=== PATIENT | female | born 1975 | race Caucasian/White ===

== ENCOUNTER 2017-10-12 02:43 | Emergency (ER) | payer BC ==
[~2017-10-12 02:43] MED LIST: AMO875 PO; BUPR-133 PO; BUPR300T55 PO; CHOL500045 PO; DOMPERIDONE; FLUT16SP19 NS; HYDR-4309 PO; IBU600 PO; LOR10 PO; ONDA4TAB PO; PROM-110 PO
--- NOTE | 2017-10-12 02:53 | ER Report ---
History and Physical Time Seen By MD: 02:53 Hx. of Stated Complaint: 0100 ONSET OF HEADACHE. HPI/ROS CHIEF COMPLAINT: headache HISTORY OF PRESENT ILLNESS: This is a 42 year old female. She had acute onset of headache tonight at 0100. No history of chronic headaches. rated 8 on a 1-10 scale. Throbbing pain, also tightness at the base of the skull and sides of the neck. Photophobia. Nausea without vomiting. No fevers or chills. Allergies: Coded Allergies: No Known Drug Allergies (Verified , 10/12/17) Home Meds Active Scripts Ketorolac Tromethamine (KETOROLAC TROMETHAMINE) 10 Mg Tab, 10 MG PO Q6H Y for HEADACHE, #12 TAB 0 Refills Prov:MYRIAM BARAJAS MD 10/12/17 Promethazine Hcl (PROMETHAZINE HCL) 25 Mg Tablet, 25 MG PO Q8H Y for HEADACHE, # 20 TAB 0 Refills Prov:MYRIAM BARAJAS MD 10/12/17 Reported Medications Fluticasone Prop 50 Mcg Ns (FLONASE 50 MCG NS) 16 Gm [place].susp, 1 SPRAY NS BID , BOT 05/09/16 Cholecalciferol (Vitamin D3) (VITAMIN D) 5,000 Unit Tablet, 6000 UNIT PO 05/08/16 Bupropion Hcl (WELLBUTRIN SR) 100 Mg Tablet.er, 300 MG PO QDAY, TAB 05/08/16 Reviewed Nurses Notes: Yes Hx Smoking: No Hx Substance Use Disorder: No Hx Alcohol Use: No Constitutional Vital Sign - Last 24 Hours 10/12/17 10/12/17 02:46 04:44 Temp 97.9 Pulse 78 85 Resp 16 16 B/P (MAP) 139/95 142/88 (106) Pulse Ox 95 92 O2 Delivery Room Air Physical Exam General Appearance: The patient is alert. Acute distress due to headache and nausea and photophobia. Eyes: Pupils are equal, round. Reactive to light. No pallor, injection or icterus. Extraocular movements are intact. No nystagmus. ENT: Mucous membranes are moist. Normal oral mucosa. Posterior oropharynx is normal. Normal tympanic membranes and canals. Neck: Supple. No anterior tenderness. Some tenderness in sternocleidomastoids and at the base of the skull. Respiratory: Lungs are clear to auscultation. Cardiovascular: Regular rate and rhythm. No murmurs, gallops or rubs. Normal capillary refill. Neurological: Alert and oriented x3. Cranial nerves II through XII show no acute deficits on my exam. No focal neurologic deficits in the extremities. Skin: Warm and dry. No rashes. Musculoskeletal: Extremities are nontender. Pain in the paraspinous muscles of the neck. No tenderness in palpation of the cervical spine. No pain in the back and thoracic/lumbar spine. DIFFERENTIAL DIAGNOSIS: After history and physical exam, differential diagnosis was considered for headache including but not limited to subarachnoid hemorrhage , migraine headache, tension headache and infectious causes such as meningitis, pharyngitis and sinusitis. Medical Decision Making Data Points Result Diagram: 10/12/17 0303 10/12/17 0303 Laboratory Hematology Test 10/12/17 03:03 Red Blood Count 4.35 M/uL (4.17-5.56) Mean Corpuscular Volume 93.4 fL (80.0-96.0) Mean Corpuscular Hemoglobin 33.0 pg (26.0-33.0) Mean Corpuscular Hemoglobin Concent 35.3 g/dL (32.0-36.0) Red Cell Distribution Width 13.5 % (11.5-14.5) Mean Platelet Volume 7.2 fL (7.2-11.1) Neutrophils (%) (Auto) 60.7 % (39.4-72.5) Lymphocytes (%) (Auto) 26.7 % (17.6-49.6) Monocytes (%) (Auto) 9.6 % (4.1-12.4) Eosinophils (%) (Auto) 2.5 % (0.4-6.7) Basophils (%) (Auto) 0.5 % (0.3-1.4) Nucleated RBC Relative Count (auto) 0.0 /100WBC Neutrophils # (Auto) 5.0 K/uL (2.0-7.4) Lymphocytes # (Auto) 2.2 K/uL (1.3-3.6) Monocytes # (Auto) 0.8 K/uL (0.3-1.0) Eosinophils # (Auto) 0.2 K/uL (0.0-0.5) Basophils # (Auto) 0.0 K/uL (0.0-0.1) Nucleated RBC Absolute Count (auto) 0.00 K/uL Erythrocyte Sedimentation Rate 7 mm/HOUR (0-20) Sodium Level 142 mmol/L (137-145) Potassium Level 3.4 mmol/L (3.5-5.0) Chloride Level 105 mmol/L (98-107) Carbon Dioxide Level 22 mmol/L (22-31) Blood Urea Nitrogen 11 mg/dl (7-18) Creatinine 0.70 mg/dl (0.52-1.04) Glomerular Filtration Rate Calc > 60.0 Random Glucose 91 mg/dl (75-110) Calcium Level 9.5 mg/dl (8.4-10.2) Total Bilirubin 0.5 mg/dl (0.2-1.3) Aspartate Amino Transf (AST/SGOT) 23 U/L (0-35) Alanine Aminotransferase (ALT/SGPT) 30 U/L (0-56) Alkaline Phosphatase 66 U/L (0-126) C-Reactive Protein < 0.5 mg/dl (<1.0) Total Protein 7.2 gm/dl (6.3-8.2) Albumin 4.2 g/dl (3.5-5.0) Chemistry Test 10/12/17 03:03 White Blood Count 8.2 k/uL (4.5-11.0) Red Blood Count 4.35 M/uL (4.17-5.56) Hemoglobin 14.3 g/dL (12.0-16.0) Hematocrit 40.6 % (34.0-47.0) Mean Corpuscular Volume 93.4 fL (80.0-96.0) Mean Corpuscular Hemoglobin 33.0 pg (26.0-33.0) Mean Corpuscular Hemoglobin Concent 35.3 g/dL (32.0-36.0) Red Cell Distribution Width 13.5 % (11.5-14.5) Platelet Count 368 K/uL (150-450) Mean Platelet Volume 7.2 fL (7.2-11.1) Neutrophils (%) (Auto) 60.7 % (39.4-72.5) Lymphocytes (%) (Auto) 26.7 % (17.6-49.6) Monocytes (%) (Auto) 9.6 % (4.1-12.4) Eosinophils (%) (Auto) 2.5 % (0.4-6.7) Basophils (%) (Auto) 0.5 % (0.3-1.4) Nucleated RBC Relative Count (auto) 0.0 /100WBC Neutrophils # (Auto) 5.0 K/uL (2.0-7.4) Lymphocytes # (Auto) 2.2 K/uL (1.3-3.6) Monocytes # (Auto) 0.8 K/uL (0.3-1.0) Eosinophils # (Auto) 0.2 K/uL (0.0-0.5) Basophils # (Auto) 0.0 K/uL (0.0-0.1) Nucleated RBC Absolute Count (auto) 0.00 K/uL Erythrocyte Sedimentation Rate 7 mm/HOUR (0-20) Glomerular Filtration Rate Calc > 60.0 Calcium Level 9.5 mg/dl (8.4-10.2) Total Bilirubin 0.5 mg/dl (0.2-1.3) Aspartate Amino Transf (AST/SGOT) 23 U/L (0-35) Alanine Aminotransferase (ALT/SGPT) 30 U/L (0-56) Alkaline Phosphatase 66 U/L (0-126) C-Reactive Protein < 0.5 mg/dl (<1.0) Total Protein 7.2 gm/dl (6.3-8.2) Albumin 4.2 g/dl (3.5-5.0) EKG/Imaging Imaging HEAD W/O CONTRAST HISTORY: Headache COMPARISON STUDIES: CT scan 06/22/2016 TECHNIQUE: Contiguous axial images were obtained from the skull base to the vertex. One of the following dose optimization techniques was utilized in the performance of this exam: Automated exposure control; adjustment of the mA and/ or kV according to the patient's size; or use of an iterative reconstruction technique. Specific details can be referenced in the facility's radiology CT exam operational policy. FINDINGS: Hemorrhage: Negative Ventricles / sulci / fissures: Negative Masses / midline shift: Negative White matter: Negative Bowers-white differentiation: Negative Extra-axial spaces: Negative Bones and skull base: Negative Visualized mastoid air cells / paranasal sinuses: Negative IMPRESSION: 1. Unremarkable non-contrast head CT. No evidence for acute intracranial hemorrhage, mass or acute ischemia. Report Dictated By: Mike Schmidt MD at 10/12/2017 3:45 AM ED Course/Re-evaluation Clinical Indication for ER IV: Hydration, IV Access ED Course Significant improvement of pain with IV Phenergan, Benadryl, and Norflex as well as 1000cc of normal saline. Head CT negative. Labs negative. Prior to discharge also gave Toradol 30mg IV. Home with Toradol and Phenergan. Decision to Disposition Date: Oct 12, 2017 Decision to Disposition Time: 04:26 Depart Departure Latest Vital Signs Vital Signs Date Time Temp Pulse Resp B/P (MAP) Pulse Ox O2 Delivery O2 Flow Rate FiO2 10/12/17 04:44 85 16 142/88 (106) 92 Room Air 10/12/17 02:46 97.9 Impression: Primary Impression: Headache Condition: Improved Disposition: HOME OR SELF-CARE Referrals: JENNIE SEO (PCP) New Scripts Ketorolac Tromethamine (KETOROLAC TROMETHAMINE) 10 Mg Tab 10 MG PO Q6H Y for HEADACHE, #12 TAB 0 Refills Prov: MYRIAM BARAJAS MD 10/12/17 Promethazine Hcl (PROMETHAZINE HCL) 25 Mg Tablet 25 MG PO Q8H Y for HEADACHE, #20 TAB 0 Refills Prov: MYRIAM BARAJAS MD 10/12/17 Patient Instructions: Acute Headache (ED) Additional Instructions: Rest and increase fluid intake. Take Toradol 10mg, one every 6 hours as needed for pain and headache. Take Phenergan 25mg, one every 8 hours as needed for nausea and headache. Problem Qualifiers Primary Impression: Headache Headache type: unspecified Headache chronicity pattern: acute headache Intractability: not intractable Qualified Codes: R51 - Headache MYRIAM BARAJAS MD Oct 12, 2017 02:53
[2017-10-12] MEDS ORDERED: ORPHENADRINE 60MG/2ML INJ IVP ONE (03:00)
[2017-10-12] MEDS ORDERED: diphenhydrAMINE 50 MG/ML VIAL IVP ONE (03:00)
[2017-10-12] MEDS ORDERED: PROMETHAZINE 25 MG/ML 1 ML AMP IVP ONE (03:00)
[2017-10-12] MEDS ORDERED: NS(*) 0.9% 1000 ML BAG 1,000 ML IV ONE (03:00)
[2017-10-12 03:19] LABS: PLATELET COUNT, AUTOMATED 368 K/uL (150-450)
--- NOTE | 2017-10-12 03:51 | RADIOLOGY IMAGING REPORT ---
[place] [facility] [place] Ashlee [place] : 1975 MR: [id number] V: [id number] EXAM DATE: ORDERING PHYSICIAN: MYRIAM BARAJAS TECHNOLOGIST: Location: [facility] [place] Patient: Ashlee Hernandez : 1975 Visit/Account:[id number] Date of Sevice: 10/12/2017 HEAD W/O CONTRAST HISTORY: Headache COMPARISON STUDIES: CT scan 06/22/2016 TECHNIQUE: Contiguous axial images were obtained from the skull base to the vertex. One of the following dose optimization techniques was utilized in the performance of this exam: Autom ated exposure control; adjustment of the mA and/or kV according to the patient's size; or use of an i terative reconstruction technique. Specific details can be referenced in the facility's radiology C T exam operational policy. FINDINGS: Hemorrhage: Negative Ventricles / sulci / fissures: Negative Masses / midline shift: Negative White matter: Negative Bowers-white differentiation: Negative Extra-axial spaces: Negative Bones and skull base: Negative Visualized mastoid air cells / paranasal sinuses: Negative IMPRESSION: 1. Unremarkable non-contrast head CT. No evidence for acute intracranial hemorrhage, mass or acute i schemia. Report Dictated By: Mike Schmidt MD at 10/12/2017 3:45 AM Report E-Signed By: Mike Schmidt MD at 10/12/2017 3:47 AM WSN:[id number]
[2017-10-12] MEDS ORDERED: PROMETHAZINE HCL 25 MG TAB TH 2 TAB/BOTTLE PO ONE (04:25)
[2017-10-12] MEDS ORDERED: KETOROLAC TROM 10 MG TAB TH PO ONE (04:25)
[2017-10-12] MEDS ORDERED: KETOROLAC 30 MG/ML VIAL IVP ONE (04:25)
[2017-10-12] MEDS ORDERED: PROM-110 PO (04:28)
[2017-10-12] MEDS ORDERED: KET10 PO (04:28)
[2017-10-12 04:44] VITALS: BP 142/88
== END 2017-10-12 04:50 | disposition home or self-care (01) ==
LOC: ER 03:07
DX: R51 Headache (principal)
CPT/HCPCS: 70450; 85025; 85651; 86140; 96361; 96374; 96375; 99284; J1200; J1885; J2360; J2550; J7030; 82040; 82247; 82310; 82374; 82435; 82565; 82947; 84075; 84132; 84155; 84295; 84450; 84460; 84520

== ENCOUNTER 2018-03-30 00:43 | Outpatient (RCR) | payer BC ==
[~2018-03-30 00:43] MED LIST changes: -HYDR-4309 PO; +HYDR-653 PO; +KET10 PO
--- NOTE | 2018-03-30 17:24 | RADIOLOGY IMAGING REPORT ---
FACILITY: [facility] PATIENT NAME: Ashlee Hernandez : 1975 MR: [id number] V: [id number] EXAM DATE: [id number] ORDERING PHYSICIAN: JENNIE SEO TECHNOLOGIST: Location: [facility] Patient: Ashlee Hernandez : 1975 Visit/Account:[id number] Date of Sevice: 03/30/2018 THYROID HISTORY: History of thyroid nodules COMPARISON: February 01, 2013 FINDINGS: SIZE: Right lobe: 5.8 x 1 x 1.6 cm Left lobe: 4.7 x 1.2 x 1 cm Isthmus: 3 mm PARENCHYMA: Homogeneous. NODULES: Right lobe: * There are several tiny hypoechoic nodules seen in the right lobe the largest measuring 5.2 mm in d iameter slightly less prominent when compared the prior study. Left lobe: * None discrete. Isthmus: * None discrete. VASCULARITY: Within normal limits. ADDITIONAL FINDINGS: None. IMPRESSION: There are several tiny hypoechoic nodules in the right lobe largest measuring 5.2 mm in diameter REFERENCE: 2015 [place] [employer] Management Guidelines for Adult Patients with Thyroid Nodules and D ifferentiated Thyroid Cancer: The [place] [employer] Guidelines Task Force on Thyroid Nodul es and Differentiated Thyroid Cancer. SONOGRAPHIC PATTERNS: * Benign: Purely cystic nodules (no solid component); estimated risk of malignancy <1 percent; no bi opsy recommended. * Very Low Suspicion: Spongiform or partially cystic nodules without any of the sonographic features described in low, intermediate, or high suspicion patterns; estimated risk of malignancy <3 percent; consider FNA at > 2 cm (Observation without FNA is also a reasonable option). * Low Suspicion: Isoechoic or hyperechoic solid nodule, or partially cystic nodule with eccentric so lid areas, without microcalcification, irregular margin or ETE (extra-thyroidal extension), or taller than wide shape; estimated risk of malignancy 5-10 percent; recommend FNA at >1.5 cm. * Intermediate Suspicion: Hypoechoic solid nodule with smooth margins without microcalcifications, E TE (extra-thyroidal extension), or taller than wide shape; estimated risk of malignancy 10-20 percent ; recommend FNA at > 1 cm. * High Suspicion: Solid hypoechoic nodule or solid hypoechoic component of a partially cystic nodule with one or more of the following features: irregular margins (infiltrative, microlobulated), microc alcifications, taller than wide shape, rim calcifications with small extrusive soft tissue component, evidence of ETE (extra-thyroidal extension); estimated risk of malignancy >70-90 percent; recommend FNA at > 1 cm. NOTES: * Although a sonographically suspicious subcentimeter thyroid nodule without evidence of extrathyroi ed extension or sonographically suspicious lymph nodes may be observed with close sonographic follow -up rather than pursuing immediate FNA, patient age and preference may modify decision-making. A > 50% interval increase in nodule volume and/or development of new suspicious sonographic features are felt to be a valid reasons for potential re-aspiration of a nodule previously shown to have benig n FNA cytology. Report Dictated By: Bambi Estrada MD at 03/30/2018 5:17 PM Report E-Signed By: Bambi Estrada MD at 03/30/2018 5:20 PM WSN:[id number]
== END 2018-03-30 18:00 | disposition home or self-care (01) ==
LOC: LAB 00:43
PROVIDERS: ATTEND Nurse Practitioner Family
DX: R53.81 Other malaise (principal); E04.2 Nontoxic multinodular goiter; E05.90 Thyrotoxicosis, unspecified without thyrotoxic crisis or storm; N95.1 Menopausal and female climacteric states; Z86.39 Personal history of other endocrine, nutritional and metabolic disease
CPT/HCPCS: 36415; 76536; 82670; 83001; 83519; 84403; 84436; 84443; 84479; 86376; 86800

== ENCOUNTER → 2018-04-16 | Outpatient (CLI) | payer BC ==
--- NOTE | 2018-04-16 16:02 | RADIOLOGY IMAGING REPORT ---
FACILITY: [facility] - [place], [place] PATIENT NAME: LORRI WATT : [id number] MR: [id number] V: [id number] EXAM DATE: [id number] ORDERING PHYSICIAN: JENNIE SEO TECHNOLOGIST: Elba Sifuentes PROCEDURE:BILATERAL DIGITAL SCREENING MAMMOGRAM WITH CAD ASSISTED INTERPRETATION & 3D TOMOSYNTHESIS COMPARISON:None. This is the patient's baseline mammogram. INDICATIONS:SCREENING FINDINGS: A small amount of fibroglandular tissue is seen throughout the breasts. There is no demonstration of malignant appearing mass, malignant appearing calcifications or other secondary sign of malignancy in either breast. DIAGNOSTIC CATEGORY 1--NEGATIVE. RECOMMENDATIONS: ROUTINE MAMMOGRAM AND CLINICAL EVALUATION. IMPRESSION: BIRADS 1: Negative. No significant abnormality is seen. Dictated by: Bambi Estrada M.D. on 04/16/2018 at 15:08 Transcribed by: AI on 04/16/2018 at 15:21 Approved by: Bambi Estrada M.D. on 04/16/2018 at 16:00 [facility]
== END ==
LOC: MAMO 03:29
PROVIDERS: ATTEND Nurse Practitioner Family
DX: Z12.31 Encounter for screening mammogram for malignant neoplasm of breast (principal)
CPT/HCPCS: 77063; 77067

== ENCOUNTER → 2018-09-08 | Outpatient (REF) | payer BC ==
[~2018-09-08] MED LIST changes: +TEST75PE4 IL
[2018-09-08 19:32] LABS: PLATELET COUNT, AUTOMATED 390 K/uL (150-450)
== END ==
PROVIDERS: ATTEND Nurse Practitioner Family
DX: R68.83 Chills (without fever) (principal); R11.0 Nausea; R10.30 Lower abdominal pain, unspecified
CPT/HCPCS: 82040; 82247; 82310; 82374; 82435; 82565; 82947; 84075; 84132; 84155; 84295; 84450; 84460; 84520; 85025

== ENCOUNTER 2018-09-15 01:21 | Observation (INO) | payer BC ==
[~2018-09-15] VITALS: Ht 152.4 cm; Wt 71.7 kg
[2018-09-15] VITALS (10 sets, daily range): BP systolic 85–107; BP diastolic 52–73
[2018-09-15] MEDS ORDERED: FAMOTIDINE 20 MG TAB PO ONE (07:20)
[2018-09-15 11:53] LABS: PLATELET COUNT, AUTOMATED 387 K/uL (150-450)
[2018-09-15] MEDS ORDERED: FAMOTIDINE 20 MG/50 ML PREMIX IVPB ONE (12:15)
[2018-09-15] MEDS ORDERED: NORMOSOL R SOLN(*) 1000 ML BAG 1,000 ML IV PRN (12:15)
[2018-09-15] MEDS ORDERED: LIDOCAINE/SOD BICARB 8.4% SYR ID ONE (12:15)
[2018-09-15] MEDS ORDERED: cefOXitin/DEX(*) 2GM/50ML PREM 50 ML IVPB ONE (12:15)
[2018-09-15] MEDS ORDERED: MIDAZOLAM 2 MG/2 ML VIAL IVP PRN (12:15)
[2018-09-15] MEDS ORDERED: fentaNYL CITR 100 MCG/2 ML AMP ONE ×2 (15:24→20:18)
[2018-09-15] MEDS ORDERED: KETAMINE HCL 200 MG/20 ML MDV ONE (15:26)
[2018-09-15] MEDS ORDERED: LIDOCAINE MPF 1% 5 ML VIAL ONE ×2 (15:27)
[2018-09-15] MEDS ORDERED: ONDANSETRON 4 MG/2 ML VIAL ONE (15:27)
[2018-09-15] MEDS ORDERED: PROPOFOL EMUL(*) 10MG/ML 20 ML 20 ML ONE (15:27)
[2018-09-15] MEDS ORDERED: DEXAMETHASONE SOD PHOS 10MG/ML ONE (15:27)
[2018-09-15] MEDS ORDERED: SUGAMMADEX SOD 500 MG/5 ML SDV ONE (15:52)
[2018-09-15] MEDS ORDERED: MANNITOL* (20%)100 GM/500ML BG 500 ML IVPB ONE (16:26)
[2018-09-15] MEDS ORDERED: VASOPRESSIN 20 UNIT/ML VIAL ONE (16:27)
[2018-09-15] MEDS ORDERED: ROPIVACAINE 0.2% 20 ML VIAL ONE (16:27)
[2018-09-15] MEDS ORDERED: ESTROGENS CONJ VAG CREAM 30 GM TUBE PV ONE (16:27)
[2018-09-15] MEDS ORDERED: NS(*) 0.9% 100 ML BAG 100 ML ONE (16:27)
[2018-09-15] MEDS ORDERED: PHENYLEPHRINE 10 MG/1 ML VIAL ONE (17:16)
[2018-09-15] MEDS ORDERED: SIMETHICONE 80 MG CHEW CHEW PRN (19:50)
[2018-09-15] MEDS ORDERED: ACETAMINOPHEN 325 MG TAB PO PRN (19:50)
[2018-09-15] MEDS ORDERED: ONDANSETRON 4 MG/2 ML VIAL IV PRN (19:50)
[2018-09-15] MEDS ORDERED: PROMETHAZINE 25 MG/ML 1 ML AMP IVP PRN (19:50)
[2018-09-15] MEDS ORDERED: HYDROmorphone HCL 2 MG TAB PO PRN (19:50)
[2018-09-15] MEDS ORDERED: ZOLPIDEM TARTRATE 10 MG TAB PO PRN (19:50)
[2018-09-15] MEDS ORDERED: IBUP800T37 PO (19:54)
[2018-09-15] MEDS ORDERED: DOCU-416 PO (19:54)
[2018-09-15] MEDS ORDERED: ESTR1PAT99 TD (19:54)
[2018-09-15] MEDS ORDERED: OXYC-865 PO (19:54)
--- NOTE | 2018-09-15 20:15 | Post Operative Note ---
Operative Note - RESIDENTIAL REAL ESTATE ASSISTANT Operative Day Date: Sep 15, 2018 Time: 20:13 Physicians Surgeon: Richie Certified Appliance Service Technician: Karime Leal Anesthesia: GETA Diagnosis Pre-Op Diagnosis: Uterovaginal prolapse Rectocele outlet dysfunction constipation JOSÉ Post-Op Diagnosis: same Procedure Procedure(s): RATLH BSO MMC posterior repair TO midurethropexy Specimen Removed:(Maybe N/A): uterus, tubes, ovaries Complications: none #[id number] Fluids Fluids: 2300 ml Estimated Blood Loss: 200 ml Dictated Date OP Note Dictated: Sep 15, 2018 Time OP Note Dictated: 20:15 Copies to: RICHARDSON WEST MD ; RICHARDSON WEST MD Sep 15, 2018 20:15
[2018-09-15] MEDS ORDERED: ESTRADIOL 0.1 MG/24 HR TDSY TD ONE (20:50)
[2018-09-15] MEDS ORDERED: IBUPROFEN 800 MG TAB PO ONE (20:57)
[2018-09-15] MEDS: IBUPROFEN 800 MG TAB PO PRN (21:00)
[2018-09-15] MEDS: FAMOTIDINE 20 MG TAB PO SCH (22:22)
[2018-09-15] MEDS: DOCUSATE CALCIUM 240 MG CAP PO SCH (22:22)
--- NOTE | 2018-09-15 23:53 | OPERATIVE REPORT 1 ---
EVENT DATE: September 15, 2018 SURGEON: Cristino Quiroz MD ANESTHESIOLOGIST: Dain Humphrey MD ANESTHESIA: General endotracheal. METAPHYSICIAN: Karime Leal PA-C PREOPERATIVE DIAGNOSES 1. Uterovaginal prolapse. 2. Rectocele. 3. Outlet dysfunction, constipation. 4. Stress urinary incontinence. 5. Urethra hypermobility. POSTOPERATIVE DIAGNOSES 1. Uterovaginal prolapse. 2. Rectocele. 3. Outlet dysfunction, constipation. 4. Stress urinary incontinence. 5. Urethra hypermobility. PROCEDURES PERFORMED 1. Robotic-assisted total laparoscopic hysterectomy. 2. Bilateral salpingo-oophorectomy. 3. Modified Sanchez culdoplasty. 4. Diagnostic cystoscopy. 5. Posterior colporrhaphy. 6. Transobturator mid urethropexy. ESTIMATED BLOOD LOSS 200 mL. FLUIDS Crystalloid 2300 mL IV. URINE OUTPUT Not measured. FINDINGS Enlarged uterus. Adnexal varicosities. Normal-appearing right upper quadrant. Normal-appearing bladder postprocedure with excellent urine jets bilaterally. PROCEDURE IN DETAIL The patient was brought to the operating room with a working IV, placed in the dorsal supine position. She was placed under general endotracheal anesthesia and moved to the dorsal lithotomy position. She was prepped and draped in the usual sterile fashion. A weighted speculum was placed in the vagina. Cervix was grasped on the anterior lip with a single-toothed tenaculum. It was sounded to a depth of 10 cm anteverted. The cervix was carefully dilated in order to accommodate a large VCare uterine manipulator, which was passed through the cervix into the uterus. Balloon inflated and secured, and the VCare cup was sutured to the cervix. The pneumo cup was approximated against the VCare cup and secured in place. A Arteaga catheter was placed to dependent drainage. Gloves were changed. Legs were brought to supine, and we proceeded laparoscopically. An 8 mm transverse incision was made above the umbilicus, and a Veress needle was passed through this incision into the abdomen while stabilizing the anterior abdominal wall. A pneumoperitoneum was created to an intra-abdominal pressure of 20 mmHg. Additional 8 mm ports were placed in the same suture line, two left lateral and two right lateral. An 8 mm bladeless trocar was passed through this umbilical incision while stabilizing the anterior abdominal wall under direct visualization with the scope. This was performed without incident. The other trocars were placed under similar technique without incident. The patient was moved to the Trendelenburg position. Bowel was swept away from the pelvis. The abdomen and pelvis were inspected. The above findings were noted. The robot was brought overlying the patient, and the umbilical robot arm #2 was docked. The camera was placed. Targeting procedure was performed and passed. All additional arms were docked and appropriately spaced. Laparoscopic equipment was placed under direct visualization and brought into the pelvis under direct monitoring, vessel sealer on arm #1, monopolar scissors on #2, and ProGrasp on #3. Once all had been placed, I scrubbed out and presented to the console. The hysterectomy proceeded as follows: The right tube and ovary were grasped and put on medial stretch. This exposed the IP ligament, which was transversely cauterized with the vessel sealer and transected. This was carried along its pelvic attachment to the round ligament, which was cauterized and transected. I the broad ligament into anterior and posterior leaflets. The anterior leaflet was dissected transversely over the entire uterus and creating a bladder flap, which was taken down beyond the indentation of the underlying VCare cup. An anterior colpotomy was performed at this time in order to identify the VCare cup. The uterine vessels were further skeletonized posteriorly down to the uterosacral ligament. The uterine vessels were then transversely cauterized and transected. Parallel bites along the lateral uterus were performed down to and overlying the VCare cup. Attention was then turned to the contralateral side. In likewise fashion, the IP ligament was exposed and put on medial stretch. It was cauterized transversely and transected with the vessel sealer, and tube and ovary were dissected away from the pelvic connection using the vessel sealer down to the round ligament. This was in a likewise fashion cauterized and transected. The anterior leaflet of the broad ligament was then dissected, completing the anterior dissection. The uterine vasculature on the left side was skeletonized down to the uterosacral ligament. The uterine vessels were then transversely cauterized and transected, and parallel bites were taken along the lateral uterus down to and overlying the VCare cup. At this point, circumferential incision was made with the monopolar scissors following the VCare cup circumferentially around the cervix to the uterosacral ligaments bilaterally and to the contralateral side. This released the cervix from its pelvic attachment, and the uterus, tubes, and ovaries were removed through the vagina. Pneumoperitoneum was maintained with a bulb grenade in the vagina. The cuff was hemostatic; therefore, instruments were changed for suturing. An 0 Vicryl was used to [id number] suture the lateral vaginal angle to the ipsilateral uterosacral ligament. This was performed bilaterally with excellent result and hemostasis. The remaining vaginal cuff was repaired with a 2-0 V-Loc in a running nonlocking stitch along its entire length with an excellent result and hemostasis achieved. The pelvis was irrigated and suctioned dry. No visible complications; therefore, the procedure was terminated. Pneumoperitoneum was released and suctioned out. All instruments were removed from the patient's abdomen. The robot had been undocked and taken away. The incisions were then repaired using a 4-0 Monocryl simple subdermal and covered with Dermabond skin adhesive. I scrubbed back in to the bedside and performed the posterior colporrhaphy as follows: The defect was demarcated along its length in the midline and infiltrated with dilute Pitressin solution. A randal-shaped wedge resection of the perineum was performed, and a linear incision along the length of the defect was performed vaginally. The vaginal mucosa was dissected away from endopelvic fascia using sharp dissection. This was performed on both sides. This exposed the defect, which received a pursestring stitch to reduce the size, followed by Mayra plication stitches along its entire length, which closed the defect. A finger was inserted rectally in order to palpate and visualize the endopelvic fascial defects, and site-specific repair was performed in these locations. Gloves were changed, and the vaginal repair was performed with a 2-0 Vicryl in a running locking stitch, and the perineal body was repaired as is typical for a second-degree obstetrical repair. There was an excellent result. There was not hemostasis achieved along the suture line in the posterior vagina; therefore, a second suture was used to oversew the incision in a running locking fashion. This completed hemostasis, and therefore, attention was turned to the sling. The legs were brought back to the 90-degree angle. The transobturator fossa was palpated extracorporally, and stab incisions were made overlying the transobturator fossa at the level of the clitoris. The mid urethra was identified by palpating the Arteaga bulb through the anterior vagina and making a linear incision beneath the urethra. This was dissected laterally using tenotomy scissors at a 45-degree angle and further bluntly dissected manually. The hook was passed through the transobturator membrane against the pubic rami, rotated 45 degrees, and traveled into the vaginal dissection. The sling material was attached and brought back through, leaving the blue introducers intracorporeal. The same procedure was followed on the contralateral side. Arteaga catheter was removed, and diagnostic cystoscopy was performed. The entire bladder was inspected with no visible injuries. Both ureteral orifices had excellent and strong urine jets, no complications; therefore, the bladder was drained and Arteaga catheter replaced. A [place] clamp was used to clamp off a 1 cm segment of the transobturator tape. This was then approximated against the urethra while the slack was removed from the sling. The introducing sleeves were removed, and the tension on the sling was further adjusted to accommodate a curved Ortega scissors beneath. Once this was adequately tensioned, the excess mesh was trimmed away from the groin, and the vaginal repair was performed with a 2-0 Vicryl in a running locking stitch. Upon completion, the entire vagina was irrigated and suctioned dry, and all surgical sites were inspected for hemostasis, which there was an excellent hemostasis. Therefore, the vagina was packed with a Kerlix sponge moistened with Premarin cream. Arteaga catheter was left indwelling. The groin incisions received Dermabond for repair. The legs were brought back to the supine position. She was awakened from general anesthesia in stable condition and taken to Recovery. Sponge, lap, needle, and instrument counts were all correct times three. PAMELA
[2018-09-16] VITALS (23 sets, daily range): BP systolic 80–105; BP diastolic 46–61; Ht 152.4 cm; Wt 71.7 kg
[2018-09-16] MEDS ORDERED: KETOROLAC 30 MG/ML VIAL IVP SCH (01:00)
[2018-09-16] MEDS: KETOROLAC 30 MG/ML VIAL IVP SCH ×2 (04:28→11:40)
[2018-09-16] MEDS: DLR(*) 1000 ML BAG 1,000 ML IV PRN ×2 (04:29→12:48)
[2018-09-16 07:36] LABS: PLATELET COUNT, AUTOMATED 326 K/uL (150-450)
--- NOTE | 2018-09-16 08:03 | OB/GYN Progress Note ---
OB Subjective Progress Notes Subjective Feeling well. Dizzy with low BP but improving. GI: NEG Nausea Pain: Mild OB Objective Physical Exam Vital Signs Date Time Temp Pulse Resp B/P (MAP) Pulse Ox O2 Delivery O2 Flow Rate FiO2 09/16/18 06:00 94 87/55 (66) 91 Nasal Cannula 0.5 09/16/18 05:00 14 09/16/18 03:30 98.5 Intake and Output 09/16/18 07:00 Intake Total 5014 ml Output Total 4050 ml Balance 964 ml Intake Oral 950 ml IV Total 4064 ml Output Urine Total 3950 ml Estimated Blood Loss 100 ml General Appearance: Alert/Awake/No Acute Distress Neurological: No Gross deficits Cardiovascular: Normal Rhythm & Peripheral Pulses, Regular Rate and Rhythm Respiratory: No Respiratory Distress, Clear to Auscultation Abdomen: Soft, Non-Tender, Non-Distended, Non-Tender Incision: Clean, Dry, Intact, Dermabond Integumentary: Skin Intact without Lesions or Rash Psychological: Alert & Oriented X3, Appropriate Mood & Affect Result Diagram: 09/16/18 0725 Assessment and Plan IMPORT/EXPORT ADMINISTRATOR Plan: Routine Post-Op Care Problems: (1) Other specified aftercare following surgery Assessment & Plan: Monitoring pressures still. Will get up to ambulate today, remove packing and shipman and do bladder testing. If does well, home tonight. (2) History of robot-assisted laparoscopic hysterectomy RICHARDSON WEST MD Sep 16, 2018 08:03
[2018-09-16] MEDS: DOCUSATE CALCIUM 240 MG CAP PO SCH ×2 (10:06→21:39)
[2018-09-16] MEDS: FAMOTIDINE 20 MG TAB PO SCH ×2 (10:06→21:39)
[2018-09-16] MEDS: IBUPROFEN 800 MG TAB PO PRN (18:04)
--- NOTE | 2018-09-16 19:05 | Short(Outpt) Discharge Summary ---
Discharge Summary Reason for Hosp/Final Diag: (1) Other specified aftercare following surgery Hospital Course & Plan: Monitoring pressures still. Will get up to ambulate today, remove packing and shipman and do bladder testing. Good PVR following removal of catheter. Bladder training. F/U at 2 weeks in office. (2) History of robot-assisted laparoscopic hysterectomy Departure Discharge to: Home, Self Care Discharge Instructions Home Meds Active Scripts Oxycodone Hcl/Acetaminophen (PERCOCET 5-325 MG TABLET) 1 Each Tablet, 1 EACH PO Q4-6H PRN for PAIN, #20 TAB 0 Refills TAKE 1 TABLET NEEDED FOR PAIN - NO CLOSER THAN EVERY 4-6 HOURS. Prov:SEAN SEVERINO 09/15/18 Reported Medications Testosterone (TESTOPEL) 75 Mg Pellet.ea., 50 MG IL [id number] 09/07/18 Cholecalciferol (Vitamin D3) (VITAMIN D) 5,000 Unit Tablet, 6000 UNIT PO 05/08/16 Follow up Referrals: [employer] [facility] - In Two Weeks @ [facility] with RICHARDSON WEST MD Diet: Regular Activity: As Tolerated Copies to: RICHARDSON WEST MD ; RICHARDSON WEST MD Sep 16, 2018 19:05
[2018-09-16] MEDS ORDERED: INFLUENZA VIRUS VAC 0.5ML SYR IM ONLY ONE (19:50)
== END 2018-09-16 19:01 | disposition home or self-care (01) ==
LOC: OR 01:21 → PED 21:45
PROVIDERS: ADMIT Obstetrics & Gynecology; ATTEND Obstetrics & Gynecology
DX: N81.4 Uterovaginal prolapse, unspecified (principal); N39.3 Stress incontinence (female) (male); N36.41 Hypermobility of urethra; K59.00 Constipation, unspecified
CPT/HCPCS: 36415; 57250; 57288; 58571; 84703; 85025; 88307; 96372; C1771; G0378; J0694; J1100; J1885; J2001; J2370; J2405; J2550; J2704; J2795; J3010; J3490; J7050